=== PATIENT | female | born 1960 | race Caucasian/White ===

== ENCOUNTER → 2019-10-25 | Day surgery (SDC) | payer BC ==
[~2019-10-25] MED LIST: ACETAMINOPHEN 325 MG TABLET PO PRN; ALBUTEROL SULFATE 2.5 MG/3 ML NEBU. NEB PRN; ATOM25CA PO; ATROPINE 0.5 MG/5 ML DISP.SYRIN. IV PRN; CETI10TA22 PO; IV RINGERS SOLUTION,LACTATED 1,000 ML IV SCH; LIDOCAINE 2% PF Vial for OR 5 ML VIAL. ONE; MIDAZOLAM HCL PF 2 MG/2 ML VIAL. IV PRN; MONT10TA80 PO; ONDANSETRON PF 4 MG/2 ML VIAL. IV PRN; PHEN15CA2 PO; PHENOL ORAL SPRAY 177ML BOTTLE. MM PRN; PROPOFOL 40 ML IV ONE; diphenhydrAMINE 50 MG/ML VIAL IV PRN
[2019-10-25] MEDS: IV RINGERS SOLUTION,LACTATED 1,000 ML IV SCH (11:36)
[2019-10-25 13:04] VITALS: BP 127/75
== END ==
LOC: SURG 10:54 → EDSEX 13:30
PROVIDERS: ATTEND Internal Medicine Gastroenterology
DX: Z12.11 Encounter for screening for malignant neoplasm of colon (principal); K57.30 Diverticulosis of large intestine without perforation or abscess without bleeding; G43.909 Migraine, unspecified, not intractable, without status migrainosus; K63.89 Other specified diseases of intestine
CPT/HCPCS: 45378; J2704; J7120; J2001